=== PATIENT | female | born 1960 | race Caucasian/White ===

== ENCOUNTER 2017-06-21 11:16 | Day surgery (SDC) | payer MEDICAID ==
[~2017-06-21] VITALS: Ht 154.9 cm; Wt 54.5 kg
--- NOTE | ~2017-06-21 | OP ---
PATIENT NAME: HEAVENLY ZAPATA MEDICAL RECORD: [id number] :56 LOCATION:[facility] ADMISSION DATE: SURGEON: JUDI JOSHI DO DATE OF OPERATION: 06/21/2017 PROCEDURE: Colonoscopy with polypectomy. INDICATION FOR PROCEDURE: Change in bowel habits. SCOPE: Olympus video pediatric colonoscope. MEDICATIONS: Propofol 540 mg IV per anesthesia. WITHDRAWAL TIME: 17 minutes. ESTIMATED BLOOD LOSS: Minimal. COMPLICATIONS: None. FINDINGS: Informed consent was given. The patient was made comfortable with the above medication. After reaching an adequate level of sedation by slow IV push, the patient was placed on her left side. A digital rectal examination was performed and was normal. The endoscope was then advanced under direct visualization through the rectum to the terminal ileum. The appendiceal orifice was located. The endoscope was slowly withdrawn and mucosa was carefully examined. The prep quality was good. There was evidence of [id number] diverticulosis involving the sigmoid colon with mixed small- and wide-mouthed diverticula present. There was no evidence of diverticulitis. There were 3 polyps visualized on today's examination. The first was an elongated polyp along the ileocecal valve. It was a mixed flat and sessile type. It was removed in piecemeal resection using hot forceps and the remaining portions were cauterized. The second polyp was located in the transverse colon. It was a benign-appearing sessile polyp which measured approximately 5 mm in diameter. It was removed using hot forceps in one piece and completely retrieved. The final polyp was located in the descending colon. It was a mixed flat and sessile polyp, which measured approximately 8 mm in diameter and it was located in the descending colon. It was removed using hot snare in one piece and completely retrieved. Retroflexion was performed in the rectum with a normal-appearing rectal wall. The endoscope was then withdrawn from the patient. The patient tolerated the procedure well and there were no complications. IMPRESSION: 1. [id number] diverticulosis of the sigmoid colon without diverticulitis. 2. Three polyps removed on today's examination. 3. It sounds like the patient has pelvic floor dysfunction based on her symptomatology and need for manual maneuvers to facilitate bowel movements. PLAN AND RECOMMENDATIONS: 1. Discharge home when recovery parameters are met. 2. Followup biopsy specimen results. 3. High-fiber diet. 4. Supplement diet with 1-2 tablespoons of Metamucil or other psyllium husk fiber. 5. We will consider referral to gynecology and/or [facility] for anorectal manometry OPERATIVE REPORT [id number] HEAVENLY ZAPATA and further interventions as indicated based on those results. 6. Recall colonoscopy in 2-3 years for surveillance of polyps. TRANSINT:[id number] Voice Confirmation ID: [id number] DOCUMENT ID: [id number] JUDI JOSHI DO at 1524 CC: [id number] DICTATION DATE: 06/21/17 1408 CROZER: 06/21/17 1427 [facility] 06/21/17 [id number] [place] [address]
[2017-06-21 12:04] LABS: BASOPHILS 0.7 % (0-2); EOSINOPHILS 4.1 % (0-7); HEMATOCRIT 39.2 % (36.0-48.0); HEMOGLOBIN 13.5 g/dL (12-16); IMMATURE GRANULOCYTES 0.4 % (0-5); LYMPHOCYTES 26.2 % (15-50); MCH 29.8 pg (26.0-34.0); MCHC 34.4 g/dL (31.0-37.0); MCV 86.5 fL (80.0-100.0); MEAN PLATELET VOLUME 8.6 fL (7.4-10.4); MONOCYTES 10.5 % (2-11); NEUTROPHILS 58.1 % (40-80); PLATELET COUNT 320 10x3/uL (130-400); RBC 4.53 10x6/uL (4.00-5.40); RDW 14.3 % (11.5-14.5); WBC 5.4 10x3/uL (4.8-10.8)
[2017-06-21] MEDS ORDERED: LISINOPRIL5 MG PO (12:16)
[2017-06-21] MEDS ORDERED: ZOCOR20 MG PO (12:17)
[2017-06-21] MEDS ORDERED: SYMBICORT 80-10.2 GM INH (12:17)
[2017-06-21] MEDS ORDERED: ULTRAM50 MG PO (12:17)
[2017-06-21] MEDS ORDERED: DESERYL100 MG PO (12:17)
[2017-06-21] MEDS ORDERED: PROAIR HFA8.5 GM INH (12:18)
[2017-06-21] MEDS ORDERED: FAMVIR500 MG PO (12:18)
[2017-06-21 12:19] LABS: CALC OSMOLALITY 273 mosm/kg (275-300); CALCIUM 9.3 mg/dL (8.5-10.1); CARBON DIOXIDE 20.8 mmol/L (21.0-32.0); CHLORIDE - SERUM 104 mmol/L (98-107); CREATININE - SERUM 0.6 mg/dL (0.6-1.3); GLUCOSE 86 mg/dL (74-106); POTASSIUM - SERUM 4.1 mmol/L (3.5-5.1); SODIUM 138 mmol/L (136-145); UREA NITROGEN 10 mg/dL (7-18); eGFR NON AFRICAN AMERICAN > 90 mL/min (90-120)
[2017-06-21 12:27] VITALS: BP 122/64; Ht 154.9 cm; Wt 54.5 kg
== END 2017-06-21 15:10 | disposition home or self-care (01) ==
LOC: D.OPS 11:16
PROVIDERS: Anesthesiology
DX: R19.4 Change in bowel habit (principal); K57.30 Diverticulosis of large intestine without perforation or abscess without bleeding; D12.4 Benign neoplasm of descending colon; D12.3 Benign neoplasm of transverse colon; F17.200 Nicotine dependence, unspecified, uncomplicated; J44.9 Chronic obstructive pulmonary disease, unspecified; K21.9 Gastro-esophageal reflux disease without esophagitis; I10 Essential (primary) hypertension; Z01.812 Encounter for preprocedural laboratory examination

== ENCOUNTER → 2017-08-02 12:12 | Outpatient (CLI) | payer MEDICAID ==
[2017-06-21 12:27] VITALS: BMI 22.7
[~2017-08-02 12:12] MED LIST: DESERYL100 MG PO; FAMVIR500 MG PO; LISINOPRIL5 MG PO; PROAIR HFA8.5 GM INH; SYMBICORT 80-10.2 GM INH; ULTRAM50 MG PO; ZOCOR20 MG PO
== END | disposition home or self-care (01) ==
LOC: D.RAD 12:12
DX: R05 Cough (principal)

== ENCOUNTER 2019-08-24 15:25 | Outpatient (CLI) | payer MEDICAID ==
[~2019-08-24] VITALS: Ht 154.9 cm; Wt 44.5 kg
--- NOTE | 2019-08-24 15:16 | NUR ---
1500-STARTED SALINE LOCK TO RIGHT WRIST TIMES ONE ATTEMPT WITH 22G CATHETER.
[2019-08-24 15:20] VITALS: BP 119/68; Ht 154.9 cm; Wt 44.5 kg
== END 2019-08-24 18:08 ==
LOC: D.OPS 15:25
PROVIDERS: ATTEND Internal Medicine Hematology & Oncology
DX: D50.9 Iron deficiency anemia, unspecified (principal)

== ENCOUNTER 2019-08-31 11:04 | Outpatient (CLI) | payer MEDICAID ==
[~2019-08-31] VITALS: Ht 154.9 cm; Wt 44.5 kg
[2019-08-31 12:19] VITALS: BP 141/77; Ht 154.9 cm; Wt 44.5 kg
--- NOTE | 2019-08-31 15:21 | NUR ---
1505 IV REMOVED AND PT DRESSED AND INSTRUCTIONS GIVEN
== END 2019-08-31 14:45 | disposition home or self-care (01) ==
LOC: D.OPS 11:04
PROVIDERS: ATTEND Internal Medicine Hematology & Oncology
DX: D50.9 Iron deficiency anemia, unspecified (principal)

== ENCOUNTER 2019-09-07 09:51 | Outpatient (CLI) | payer MEDICAID ==
[~2019-09-07] VITALS: Ht 154.9 cm; Wt 44.5 kg
[2019-09-07 10:18] VITALS: Ht 154.9 cm; Wt 44.5 kg
== END 2019-09-07 12:59 | disposition home or self-care (01) ==
LOC: D.OPS 09:51
PROVIDERS: ATTEND Internal Medicine Hematology & Oncology
DX: D50.9 Iron deficiency anemia, unspecified (principal)

== ENCOUNTER 2019-09-14 11:00 | Outpatient (CLI) | payer MEDICAID ==
[~2019-09-14] VITALS: Ht 154.9 cm; Wt 44.5 kg
[2019-09-14 12:22] VITALS: Ht 154.9 cm; Wt 44.5 kg
== END 2019-09-14 14:32 | disposition home or self-care (01) ==
LOC: D.OPS 11:00
PROVIDERS: ATTEND Internal Medicine Hematology & Oncology
DX: D50.0 Iron deficiency anemia secondary to blood loss (chronic) (principal)

== ENCOUNTER 2019-09-21 11:20 | Outpatient (CLI) | payer MEDICAID ==
[~2019-09-21] VITALS: Ht 154.9 cm; Wt 44.5 kg
[2019-09-21 11:38] VITALS: Ht 154.9 cm; Wt 44.5 kg
== END 2019-09-21 14:30 | disposition home or self-care (01) ==
LOC: D.OPS 11:20
PROVIDERS: ATTEND Internal Medicine Hematology & Oncology
DX: D50.9 Iron deficiency anemia, unspecified (principal)

== ENCOUNTER 2019-09-28 10:58 | Outpatient (CLI) | payer MEDICAID ==
[~2019-09-28] VITALS: Ht 154.9 cm; Wt 44.1 kg
[2019-09-28 11:13] VITALS: BP 128/52; Ht 154.9 cm; Wt 44.1 kg
== END 2019-09-28 14:05 ==
LOC: D.OPS 10:58
PROVIDERS: ATTEND Internal Medicine Hematology & Oncology
DX: E55.9 Vitamin D deficiency, unspecified (principal)

== ENCOUNTER 2019-10-05 14:22 | Outpatient (CLI) | payer MEDICAID ==
[~2019-10-05] VITALS: Ht 154.9 cm; Wt 42.3 kg
[2019-10-05 15:07] VITALS: BP 110/61; Ht 154.9 cm; Wt 42.3 kg
--- NOTE | 2019-10-05 17:55 | NUR ---
1745 IV REMOVED AND INSTRUCTIONS GIVEN TO PT
== END 2019-10-05 17:55 | disposition home or self-care (01) ==
LOC: D.OPS 14:22
PROVIDERS: ATTEND Internal Medicine Hematology & Oncology
DX: D50.9 Iron deficiency anemia, unspecified (principal)

== ENCOUNTER 2019-10-12 10:21 | Outpatient (CLI) | payer MEDICAID ==
[~2019-10-12] VITALS: Ht 154.9 cm; Wt 42.3 kg
[2019-10-12 10:49] VITALS: BP 119/69; Ht 154.9 cm; Wt 42.3 kg
--- NOTE | 2019-10-12 16:04 | NUR ---
1330 IV REMOVED AND INSTRUCTIONS GIVEN.
== END 2019-10-12 14:00 | disposition home or self-care (01) ==
LOC: D.OPS 10:21
PROVIDERS: ATTEND Internal Medicine Hematology & Oncology
DX: D50.9 Iron deficiency anemia, unspecified (principal)

== ENCOUNTER 2019-10-19 11:05 | Outpatient (CLI) | payer MEDICAID ==
[~2019-10-19] VITALS: Ht 154.9 cm; Wt 44.5 kg
[2019-10-19 11:24] VITALS: Ht 154.9 cm; Wt 44.5 kg
== END 2019-10-19 13:56 | disposition home or self-care (01) ==
LOC: D.OPS 11:05
PROVIDERS: ATTEND Internal Medicine Hematology & Oncology
DX: D50.9 Iron deficiency anemia, unspecified (principal)

== ENCOUNTER 2019-11-02 10:14 | Outpatient (CLI) | payer MEDICAID ==
[~2019-11-02] VITALS: Ht 154.9 cm; Wt 41.4 kg
[2019-11-02 10:49] VITALS: Ht 154.9 cm; Wt 41.4 kg
== END 2019-11-02 13:00 | disposition home or self-care (01) ==
LOC: D.OPS 10:14
PROVIDERS: ATTEND Internal Medicine Hematology & Oncology
DX: D50.9 Iron deficiency anemia, unspecified (principal)

== ENCOUNTER 2019-11-09 10:28 | Outpatient (CLI) | payer MEDICAID ==
[~2019-11-09] VITALS: Ht 154.9 cm; Wt 45.5 kg
[2019-11-09 10:49] VITALS: BP 105/63; Ht 154.9 cm; Wt 45.5 kg
== END 2019-11-09 13:30 | disposition home or self-care (01) ==
LOC: D.OPS 10:28
PROVIDERS: ATTEND Internal Medicine Hematology & Oncology
DX: D50.9 Iron deficiency anemia, unspecified (principal)